=== PATIENT | female | born 1945 ===

== ENCOUNTER 2017-08-06 06:03 | Day surgery (SDC) | payer OTHER ==
[~2017-08-06 06:03] MED LIST: CARAFATE1 GM PO; COZAAR100 MG PO; LOZOL; ZOCOR40 MG PO; [UNRECOGNIZED DRUG - OTHER]
[2017-08-06] MEDS ORDERED: RECTICARE30 GM TOP (07:53)
[2017-08-06] MEDS ORDERED: PERCOCET 5-3251 EACH PO (07:53)
== END 2017-08-06 13:20 | disposition home or self-care (01) ==
LOC: CIR.AMB 06:03
DX: A63.0 Anogenital (venereal) warts (principal)